=== PATIENT | male | born 1940 ===

== ENCOUNTER 2016-08-08 14:55 | Emergency (ER) | payer MEDICARE ==
[2016-08-08 15:03] VITALS: BMI 24.3
[2016-08-08 15:04] VITALS: RESP 18; TEMP 97.4; O2SAT 97
[2016-08-08] MEDS ORDERED: Sodium Chloride 0.9% 1,000 ML IV SCH (15:30)
[2016-08-08 15:58] LABS: BASO % 0.5 % (0.0-2.0); EOS # 0.1 K/uL (0.0-0.7); EOS % 1.2 % (0.0-4.0); HEMATOCRIT 37.6 % (35.0-51.0); LYMPH # 1.1 K/uL (1.0-4.3); LYMPH % 10.7 % (20.0-40.0); MEAN CELL VOLUME 91.6 fL (80.0-94.0); MEAN CORPUSCULAR HEMOGLOBIN 30.6 pg (27.0-31.0); MEAN CORPUSCULAR HGB CONC 33.4 g/dL (33.0-37.0); MONO # 0.5 K/uL (0.0-0.8); MONO % 4.6 % (0.0-10.0); RED CELL DISTRIBUTION WIDTH 13.2 % (11.5-14.5)
[2016-08-08 16:07] LABS: CHLORIDE 101 mmol/L (98-107); SODIUM 137 mmol/L (132-148)
[2016-08-08 16:08] LABS: POTASSIUM 4.3 mmol/L (3.6-5.2)
[2016-08-08 16:09] LABS: CHOLESTEROL 166 mg/dL (0-199); GFR AFRICAN-AMERICAN > 60
[2016-08-08 16:10] LABS: ALB/GLOB RATIO 1.8 (1.0-2.1); ALKALINE PHOSPHATASE 71 U/L (38-126); ALT/SGPT 23 U/L (21-72); AST/SGOT 20 U/L (17-59); BILIRUBIN,TOTAL < 0.1 mg/dL (0.2-1.3); BLOOD UREA NITROGEN 19 mg/dL (9-20); CALCIUM 9.2 mg/dl (8.6-10.4); GLUCOSE,RANDOM 142 mg/dL (75-110); TOTAL PROTEIN 7.6 g/dL (6.3-8.3)
[2016-08-08 16:11] LABS: ALCOHOL SERUM < 10 mg/dl (0-10)
[2016-08-08] MEDS ORDERED: Sodium Chloride 0.9% 1,000 ML ONE (16:11)
--- NOTE | 2016-08-08 16:15 | CT ---
PROCEDURE: CT HEAD WITHOUT CONTRAST. HISTORY: acute vertigo, ? cerebellar COMPARISON: None available. TECHNIQUE: Axial computed tomography images were obtained through the head/brain without intravenous contrast. Radiation dose: Total exam DLP = 1169.9 mGy-cm. This CT exam was performed using one or more of the following dose reduction techniques: Automated exposure control, adjustment of the mA and/or kV according to patient size, and/or use of iterative reconstruction technique. FINDINGS: HEMORRHAGE: No intracranial hemorrhage. BRAIN: No mass effect or edema. No atrophy or chronic microvascular ischemic changes. VENTRICLES: Unremarkable. No hydrocephalus. CALVARIUM: Unremarkable. PARANASAL SINUSES: Mild sinuses mucosal thickening. MASTOID AIR CELLS: Unremarkable as visualized. No inflammatory changes. OTHER FINDINGS: None. IMPRESSION: No evidence of acute intracranial hemorrhage mass lesion mass effect or midline shift. Mild sinuses mucosal thickening.
[2016-08-08 16:17] VITALS: BP 131/72; PULSE 73
[2016-08-08 16:40] LABS: CARBON DIOXIDE 24 mmol/L (22-30)
--- NOTE | 2016-08-08 16:43 | C.PDOC ---
History Of Present Illness 76 y/o male presents to the ED with complains of mild dizziness since this morning. Pt also reports seasonal allergies and nasal congestion. Pt denies headache, weakness, numbness, vision changes or any other complaints. Denies fall. Time Seen by Provider: 08/08/16 15:25 Chief Complaint (Nursing): Dizziness/Lightheaded History Per: Patient History/Exam Limitations: no limitations Onset/Duration Of Symptoms: Hrs Current Symptoms Are (Timing): Still Present Seizure Or Post-ictal Symptoms: None Fall Associated With With Symptoms: No Severity: Mild Recent travel outside of the [place]: No - Symptoms Of CVA Recent Head Trauma: No Past Medical History Reviewed: Historical Data, Nursing Documentation, Vital Signs Vital Signs: Last Vital Signs Temp 97.4 F L 08/08/16 15:03 Pulse 73 08/08/16 16:16 Resp 18 08/08/16 16:16 BP 131/72 08/08/16 16:16 Pulse Ox 97 08/08/16 16:43 - Medical History PMH: HTN, Hypercholesterolemia Family History: States: Unknown Family Hx - Social History Hx Alcohol Use: No Hx Substance Use: No - Immunization History Hx Tetanus Toxoid Vaccination: No Hx Influenza Vaccination: No Hx Pneumococcal Vaccination: No Review Of Systems Except As Marked, All Systems Reviewed And Found Negative. Constitutional: Negative for: Fever, Chills ENT: Positive for: Nose Congestion Respiratory: Negative for: Cough, Shortness of Breath Gastrointestinal: Negative for: Vomiting Neurological: Positive for: Dizziness. Negative for: Weakness, Numbness, Headache Physical Exam - Physical Exam Appears: Non-toxic, No Acute Distress Skin: Warm, Dry, No Rash Head: Atraumatic, Normacephalic Ear(s): Bilateral: Normal Nose: Normal Throat: Normal, No Erythema Neck: Normal, Normal ROM, Supple Chest: Symmetrical Cardiovascular: Rhythm Regular, No Murmur Respiratory: Normal Breath Sounds, No Rales, No Rhonchi, No Wheezing Extremity: Normal ROM, No Pedal Edema Extremity: Bilateral: Atraumatic Neurological/Psych: Oriented x3, Normal Speech ED Course And Treatment - Laboratory Results Result Diagrams: 08/08/16 15:51 08/08/16 15:51 Lab Interpretation: Normal (trop neg.) ECG: Interpreted By Wi ECG Rhythm: Sinus Rhythm ECG Interpretation: Normal Rate From EC (BPM) O2 Sat by Pulse Oximetry: 97 (room air) Pulse Ox Interpretation: Normal - Radiology CXR: Interpreted by Me CXR Interpretation: Yes: No Acute Disease - Other Rad head CT X-Ray: Read By Radiologist (neg) Progress Note: meclizine PO Reevaluation Time: 16:43 Reassessment Condition: Improved (dizziness resolved) Medical Decision Making Medical Decision Making: sinus irritation vs mild vertigo normal w/u improved with Meclizine opt f/u with PMD Disposition Doctor Will See Patient In The: Office Counseled Patient/Family Regarding: Studies Performed, Diagnosis - Disposition Referrals: Americo Mujica MD [Medical Doctor] - Disposition: HOME/ ROUTINE Disposition Time: 16:43 Condition: GOOD Additional Instructions: medicamentos para las allergias nasales- mario Shira-D. Usa mario dirijido Antivert/Meclizine 25 mg cada 6 horas mario necessario para los mareos, si los medicamentos descongestionantes no sirven. Sigue con roberts medico mario necessario. Prescriptions: Meclizine [Meclizine*] 25 mg PO Q6 PRN #30 tab PRN Reason: vertigo Instructions: Vertigo (ED), Dizziness (ED) Print Language: NICARAGUAN - Clinical Impression Clinical Impression: Dizziness - Scribe Statement The provider has reviewed the documentation as recorded by the Noemi Zaidi Provider Attestation: All medical record entries made by the Mitchelibandrey were at my direction and personally dictated by me. I have reviewed the chart and agree that the record accurately reflects my personal performance of the history, physical exam, medical decision making, and the department course for this patient. I have also personally directed, reviewed, and agree with the discharge instructions and disposition.
--- NOTE | 2016-08-08 16:48 | RAD ---
HISTORY: dizzy COMPARISON: No prior. FINDINGS: LUNGS: No active pulmonary disease. PLEURA: No significant pleural effusion identified, no pneumothorax apparent. CARDIOVASCULAR: Normal. OSSEOUS STRUCTURES: No significant abnormalities. VISUALIZED UPPER ABDOMEN: Normal. OTHER FINDINGS: None. IMPRESSION: No active disease.
[2016-08-08 17:02] LABS: RBC URINE < 1 /hpf (0-3); URINE BILIRUBIN NEGATIVE (NEGATIVE); URINE BLOOD NEGATIVE (NEGATIVE); URINE COLOR Yellow (YELLOW); URINE GLUCOSE (UA) 1+ mg/dL (Normal); URINE KETONE NEGATIVE (NEGATIVE); URINE LEUKOCYTE ESTERASE NEG Leu/uL (Negative); URINE PROTEIN NEGATIVE (NEGATIVE); URINE UROBILINOGEN NORMAL mg/dL (0.2-1.0); WBC URINE 1 /hpf (0-5)
--- NOTE | 2016-08-15 13:38 | CARD ---
APPROVED REPORT EKG Measurement Heart [id number] [place] 150P71 [id number] <Conclusion> Normal sinus rhythm Possible Anterior infarct, age undetermined Abnormal ECG
== END 2016-08-08 16:55 | disposition home or self-care (01) ==
LOC: C.ER 14:55
DX: R42 Dizziness and giddiness (principal)
CPT/HCPCS: 70450; 71010; 80053; 80061; 81001; 83036; 84484; 85025; 99285; G0480; J7040

== ENCOUNTER 2017-09-02 15:24 | Emergency (ER) | payer MEDICARE ==
[2017-09-02 15:26] VITALS: BMI 24.3
[2017-09-02] MEDS ORDERED: Sodium Chloride 0.9% 1,000 ML IV ONE ×2 (15:47→17:21)
--- NOTE | 2017-09-02 16:05 | C.PDOC ---
History Of Present Illness 77 year old male, whose PMHx includes Diabetes, presents to the ED for evaluation of elevated blood sugar level. Patient states he takes a "pill" for his Diabetes, but does not recall the name. Patient reports he had a headache yesterday, but does not have one today. He denies fever, chills, nausea, vomiting, urinary frequency. Time Seen by Provider: 09/02/17 15:40 Chief Complaint (Nursing): High Blood Sugar History Per: Patient History/Exam Limitations: no limitations Onset/Duration Of Symptoms: Days Current Symptoms Are (Timing): Still Present Current Diabetic Medications: Oral Medication Associated Infectious Symptoms: denies: Urinary Frequency, Nausea, Vomiting Additional History Per: Patient Past Medical History Reviewed: Historical Data, Nursing Documentation, Vital Signs Vital Signs: Last Vital Signs Temp Pulse 98 H 09/02/17 15:43 Resp 22 09/02/17 15:43 BP 99/58 L 09/02/17 15:43 Pulse Ox 93 L 09/02/17 17:55 - Medical History PMH: HTN, Hypercholesterolemia Surgical History: No Surg Hx Family History: States: Unknown Family Hx - Social History Hx Alcohol Use: No Hx Substance Use: No - Immunization History Hx Tetanus Toxoid Vaccination: No Hx Influenza Vaccination: No Hx Pneumococcal Vaccination: No Review Of Systems Constitutional: Positive for: Other (elevated blood sugar level ) Gastrointestinal: Negative for: Nausea, Vomiting Genitourinary: Negative for: Frequency Physical Exam - Physical Exam Appears: Non-toxic, No Acute Distress Skin: Normal Color, Warm, Dry Head: Atraumatic, Normacephalic Eye(s): bilateral: Normal Inspection Oral Mucosa: Moist Neck: Supple Chest: Symmetrical, No Deformity, No Tenderness Cardiovascular: Rhythm Regular, No Murmur Respiratory: Normal Breath Sounds, No Rales, No Rhonchi, No Wheezing Extremity: Normal ROM, Capillary Refill (less than 2 seconds ) Neurological/Psych: Oriented x3, Normal Speech, Normal Cognition ED Course And Treatment - Laboratory Results Result Diagrams: 09/02/17 15:58 09/02/17 15:58 Lab Interpretation: Abnormal ECG: Interpreted By Me ECG Rhythm: Sinus Rhythm ECG Interpretation: Normal Rate From EC O2 Sat by Pulse Oximetry: 93 Pulse Ox Interpretation: Normal Progress Note: Bloodwork, urinalysis, EKG ordered. IV Fluids administered. Treated with additional NSS and regular insulin 5 Units SQ. On re-evaluation feeling better in no distress. Patient advised to follow up with clinic or PMD for further evaluation Reassessment Condition: Improved Disposition Counseled Patient/Family Regarding: Studies Performed, Diagnosis, Need For Followup - Disposition Referrals: [facility] [Outside] [facility] [Outside] Disposition: HOME/ ROUTINE Disposition Time: 18:45 Condition: IMPROVED Additional Instructions: Follow up with PMD or clinic for further evaluation Instructions: Hyperglycemia, Adult Forms: [employer] (Albanian) - POA Present On Arrival: None - Clinical Impression Clinical Impression: Hyperglycemia, Diabetic complication - PA / ABATEMENT WORKER / Resident Statement MD/DO has reviewed & agrees with the documentation as recorded. - Scribe Statement The provider has reviewed the documentation as recorded by the Scribe (Ann Benitez) All medical record entries made by the Scribe were at my direction and personally dictated by me. I have reviewed the chart and agree that the record accurately reflects my personal performance of the history, physical exam, medical decision making, and the department course for this patient. I have also personally directed, reviewed, and agree with the discharge instructions and disposition.
[2017-09-02 16:07] LABS: BASO # 0.1 K/uL (0.0-0.2); BASO % 0.8 % (0.0-2.0); EOS # 0.1 K/uL (0.0-0.7); EOS % 0.9 % (0.0-4.0); HEMOGLOBIN 13.3 g/dL (12.0-18.0); LYMPH # 1.9 K/uL (1.0-4.3); LYMPH % 20.8 % (20.0-40.0); MEAN CELL VOLUME 92.5 fL (80.0-94.0); MEAN CORPUSCULAR HGB CONC 34.6 g/dL (33.0-37.0); MONO # 0.7 K/uL (0.0-0.8); MONO % 7.3 % (0.0-10.0); NEUT # 6.4 K/uL (1.8-7.0); NEUT % 70.2 % (50.0-75.0); RBC 4.16 Mil/uL (4.40-5.90); RED CELL DISTRIBUTION WIDTH 12.5 % (11.5-14.5); WHITE BLOOD COUNT 9.1 K/uL (4.8-10.8)
[2017-09-02 16:37] LABS: ALB/GLOB RATIO 1.2 (1.0-2.1); ALBUMIN 4.2 g/dL (3.5-5.0); CALCIUM 9.9 mg/dl (8.6-10.4)
[2017-09-02 17:16] LABS: SQUAMOUS EPITHIAL < 1 /hpf (0-5); URINE BILIRUBIN NEGATIVE (NEGATIVE); URINE BLOOD NEGATIVE (NEGATIVE); URINE CLARITY Clear (Clear); URINE COLOR Yellow (YELLOW); URINE GLUCOSE (UA) 3+ mg/dL (Normal); URINE LEUKOCYTE ESTERASE NEG Leu/uL (Negative); URINE PROTEIN NEGATIVE (NEGATIVE); URINE UROBILINOGEN NORMAL mg/dL (0.2-1.0)
[2017-09-02] MEDS ORDERED: (Novolin R) Insulin Human Regular 100 units/ml vial SC ONE (17:31)
[2017-09-02] MEDS ORDERED: (Novolin R) Insulin Human Regular 100 units/ml vial ONE (17:46)
[2017-09-02 18:44] VITALS: BP 108/63; PULSE 63; RESP 18; TEMP 98; O2SAT 98
--- NOTE | 2017-09-03 14:27 | CARD ---
APPROVED REPORT EKG Measurement Heart [id number] [place] 144P63 [id number] <Conclusion> Normal sinus rhythm Normal ECG
== END 2017-09-02 18:47 | disposition home or self-care (01) ==
LOC: C.ER 15:24
DX: E11.65 Type 2 diabetes mellitus with hyperglycemia (principal); Z79.84 Long term (current) use of oral hypoglycemic drugs
CPT/HCPCS: 80053; 81001; 82948; 83690; 85025; 93005; 99284; J7030

== ENCOUNTER 2017-09-07 19:05 | Emergency (ER) | payer MEDICARE ==
[2017-09-07 19:08] VITALS: BMI 24.3
[2017-09-07] MEDS ORDERED: Alum-Mag Hydrox-Simethicone Susp (30 mL) PO STA (19:57)
[2017-09-07] MEDS ORDERED: Alum-Mag Hydrox-Simethicone Susp (30 mL) ONE (20:09)
[2017-09-07 20:13] LABS: BASO # 0.1 K/uL (0.0-0.2); BASO % 0.8 % (0.0-2.0); EOS # 0.2 K/uL (0.0-0.7); EOS % 2.1 % (0.0-4.0); HEMOGLOBIN 13.3 g/dL (12.0-18.0); LYMPH # 2.3 K/uL (1.0-4.3); LYMPH % 29.3 % (20.0-40.0); MEAN CORPUSCULAR HEMOGLOBIN 31.4 pg (27.0-31.0); MEAN CORPUSCULAR HGB CONC 34.8 g/dL (33.0-37.0); MEAN PLATELET VOLUME 11.3 fL (7.2-11.7); MONO # 0.5 K/uL (0.0-0.8); MONO % 6.9 % (0.0-10.0); NEUT # 4.8 K/uL (1.8-7.0); NEUT % 60.9 % (50.0-75.0); NRBC % 0.1 % (0.0-2.0); RBC 4.24 Mil/uL (4.40-5.90); RED CELL DISTRIBUTION WIDTH 12.2 % (11.5-14.5); WHITE BLOOD COUNT 7.9 K/uL (4.8-10.8)
[2017-09-07 20:15] LABS: MEAN CELL VOLUME 90.4 fL (80.0-94.0)
[2017-09-07 20:33] LABS: ALB/GLOB RATIO 1.1 (1.0-2.1); ALBUMIN 4.2 g/dL (3.5-5.0); ALT/SGPT 14 U/L (21-72); AST/SGOT 24 U/L (17-59); BLOOD UREA NITROGEN 38 mg/dL (9-20); CALCIUM 9.5 mg/dl (8.6-10.4); GFR AFRICAN-AMERICAN > 60; GFR NON-AFRICAN AMERICAN 59; LIPASE 178 U/L (23-300)
[2017-09-07] MEDS ORDERED: Sodium Chloride 0.9% 1,000 ML IV STA (20:41)
--- NOTE | 2017-09-07 21:31 | C.PDOC ---
History Of Present Illness Pt c/o acid feeling in his throat. Time Seen by Provider: 09/07/17 19:42 Chief Complaint (Nursing): Medical Clearance History Per: Patient Onset/Duration Of Symptoms: Days, Waxing/Waning Current Symptoms Are (Timing): Still Present Severity: Moderate Additional History Per: Prior Records Past Medical History Reviewed: Historical Data, Nursing Documentation, Vital Signs Vital Signs: Last Vital Signs Temp 98.5 F 09/07/17 19:10 Pulse 101 H 09/07/17 19:10 Resp 16 09/07/17 19:10 BP 114/74 09/07/17 19:10 Pulse Ox 99 09/07/17 19:10 - Medical History PMH: Diabetes, HTN, Hypercholesterolemia Surgical History: No Surg Hx Family History: States: Unknown Family Hx - Social History Hx Tobacco Use: No Hx Alcohol Use: No Hx Substance Use: No - Immunization History Hx Tetanus Toxoid Vaccination: No Hx Influenza Vaccination: No Hx Pneumococcal Vaccination: No Review Of Systems Except As Marked, All Systems Reviewed And Found Negative. Constitutional: Negative for: Fever, Weakness ENT: Positive for: Throat Pain Cardiovascular: Negative for: Chest Pain Respiratory: Negative for: Shortness of Breath Gastrointestinal: Negative for: Vomiting, Diarrhea Musculoskeletal: Negative for: Neck Pain, Back Pain Skin: Negative for: Rash Neurological: Negative for: Weakness, Numbness Physical Exam - Physical Exam Appears: Non-toxic, No Acute Distress Skin: Normal Color, Warm, Dry, No Rash Head: Atraumatic, Normacephalic Eye(s): bilateral: PERRL, EOMI Oral Mucosa: Moist, No Drooling, No Trismus Throat: Normal Neck: Normal ROM, Supple Lymphatic: No Adenopathy Cardiovascular: Rhythm Regular Respiratory: Normal Breath Sounds, No Accessory Muscle Use Gastrointestinal/Abdominal: Soft, No Tenderness, No Distention Extremity: Normal ROM, No Pedal Edema, No Calf Tenderness Neurological/Psych: Oriented x3, Normal Speech, Normal Motor, Normal Sensation ED Course And Treatment - Laboratory Results Result Diagrams: 09/07/17 20:10 09/07/17 20:10 ECG: Interpreted By Me, Viewed By Me ECG Rhythm: Sinus Rhythm ECG Interpretation: No Acute Changes Rate From EC O2 Sat by Pulse Oximetry: 99 Pulse Ox Interpretation: Normal Progress - Interventions Interventions:: Observation, Intravenous fluid - Medications Administered Oral: Antacid, H-2 sravan Intravenous: Antiemetic - Data Reviewed Data Reviewed: Lab, EKG, Old records - Patient Status Patient status: Mostly improved - Continuity of Care Discussed patient case with:: Patient, Family-HIPPA compliant, ED Nurse - Patient Plan Patient Plan: Discharge, F/U with PCP Disposition Counseled Patient/Family Regarding: Studies Performed, Diagnosis, Need For Followup, Rx Given - Disposition Referrals: Americo Mujica MD [Medical Doctor] - Disposition: HOME/ ROUTINE Disposition Time: 21:34 Condition: IMPROVED Additional Instructions: Follow up with your doctor for further evaluation and treatment. Return to the ER if you develop chest pain, shortness of breath, vomiting, bloody or black stools, worsening of symptoms or if you have any other concerns. Prescriptions: Famotidine [Pepcid] 20 mg PO BID #30 tab Instructions: Acid Reflux (Gastroesophageal Reflux Disease), Adult (DC) Forms: [employer] (South Sudanese) Print Language: BRITISH [place] ISLANDER - Clinical Impression Clinical Impression: GERD (gastroesophageal reflux disease)
[2017-09-07 21:49] VITALS: BP 104/62; PULSE 85; RESP 18; TEMP 98.2; O2SAT 96
--- NOTE | 2017-09-08 12:35 | CARD ---
APPROVED REPORT EKG Measurement Heart [id number] [place] 140P72 [id number] <Conclusion> Normal sinus rhythm Normal ECG
== END 2017-09-07 21:48 | disposition home or self-care (01) ==
LOC: C.ER 19:05
DX: K21.9 Gastro-esophageal reflux disease without esophagitis (principal)
CPT/HCPCS: 80053; 82948; 83690; 84484; 85025; 93005; 96360; 99284; J7030

== ENCOUNTER 2018-05-15 10:22 | Emergency (ER) | payer MEDICARE ==
[2018-05-15 10:22] VITALS: BMI 24.3
[2018-05-15 11:50] LABS: BASO % 0.5 % (0.0-2.0); EOS # 0.2 K/uL (0.0-0.7); EOS % 2.1 % (0.0-4.0); HEMOGLOBIN 12.4 g/dL (12.0-18.0); LYMPH % 25.2 % (20.0-40.0); MEAN CELL VOLUME 92.7 fL (80.0-94.0); MEAN CORPUSCULAR HEMOGLOBIN 31.4 pg (27.0-31.0); MEAN CORPUSCULAR HGB CONC 33.8 g/dL (33.0-37.0); MEAN PLATELET VOLUME 10.4 fL (7.2-11.7); MONO # 0.6 K/uL (0.0-0.8); NEUT # 5.3 K/uL (1.8-7.0); NEUT % 65.2 % (50.0-75.0); NRBC % 0.1 % (0.0-2.0); RBC 3.97 Mil/uL (4.40-5.90); RED CELL DISTRIBUTION WIDTH 12.6 % (11.5-14.5); WHITE BLOOD COUNT 8.1 K/uL (4.8-10.8)
[2018-05-15] MEDS ORDERED: Sodium Chloride 0.9% 1,000 ML IV ONE (11:55)
[2018-05-15 12:06] LABS: SQUAMOUS EPITHIAL 1 /hpf (0-5); URINE BILIRUBIN NEGATIVE (NEGATIVE); URINE BLOOD NEGATIVE (NEGATIVE); URINE CLARITY Clear (Clear); URINE COLOR Yellow (YELLOW); URINE GLUCOSE (UA) NORMAL (Normal); URINE LEUKOCYTE ESTERASE NEG Leu/uL (Negative); URINE PROTEIN NEGATIVE (NEGATIVE); URINE UROBILINOGEN NORMAL mg/dL (0.2-1.0)
[2018-05-15 12:21] LABS: ALB/GLOB RATIO 1.4 (1.0-2.1); ALBUMIN 4.5 g/dL (3.5-5.0); BLOOD UREA NITROGEN 19 mg/dL (9-20); CALCIUM 9.2 mg/dl (8.6-10.4); GFR NON-AFRICAN AMERICAN 59; LIPASE 59 U/L (23-300)
[2018-05-15 12:23] LABS: ALT/SGPT 18 U/L (21-72); AST/SGOT 35 U/L (17-59)
[2018-05-15] MEDS ORDERED: Sodium Chloride 0.9% 1,000 ML ONE (13:05)
--- NOTE | 2018-05-15 13:10 | C.PDOC ---
History Of Present Illness 77 year old male presents to the ED for evaluation of diarrhea for 4 days. The patient reports x2 episodes of diarrhea today with decreased PO intake. Notes visit to PMD yesterday where he was given Imodium with no improvement, prompting ED visit. Denies known allergies to medications. Teo fever, chills, hematochezia, sick contact, and any other associated symptoms. Time Seen by Provider: 05/15/18 11:30 Chief Complaint (Nursing): Abdominal Pain History Per: Patient History/Exam Limitations: no limitations Onset/Duration Of Symptoms: Days (x4) Current Symptoms Are (Timing): Still Present Location Of Pain/Discomfort: LUQ, LLQ Recent travel outside of the [place]: No Past Medical History Reviewed: Historical Data, Nursing Documentation, Vital Signs Vital Signs: Last Vital Signs Temp 98 F 05/15/18 10:32 Pulse 78 05/15/18 10:32 Resp 18 05/15/18 10:32 BP 117/74 05/15/18 10:32 Pulse Ox 99 05/15/18 10:32 - Medical History PMH: Diabetes, HTN, Hypercholesterolemia Family History: States: Unknown Family Hx - Social History Hx Tobacco Use: No Hx Alcohol Use: No Hx Substance Use: No - Immunization History Hx Tetanus Toxoid Vaccination: No Hx Influenza Vaccination: No Hx Pneumococcal Vaccination: No Review Of Systems Except As Marked, All Systems Reviewed And Found Negative. Constitutional: Negative for: Fever, Chills, Other ((-) sick contact. ) Eyes: Negative for: Pain ENT: Negative for: Ear Pain Cardiovascular: Negative for: Chest Pain Respiratory: Negative for: Cough, Shortness of Breath Gastrointestinal: Positive for: Abdominal Pain (lower. ), Diarrhea, Other ((+) d ecreased PO intake.). Negative for: Hematochezia Genitourinary: Negative for: Dysuria Musculoskeletal: Negative for: Neck Pain Skin: Negative for: Rash Neurological: Negative for: Weakness, Numbness Physical Exam - Physical Exam Appears: Well, Non-toxic, No Acute Distress Skin: Warm, Dry Head: Atraumatic, Normacephalic Eye(s): bilateral: Normal Inspection Oral Mucosa: Moist Neck: Normal ROM, Supple Chest: Symmetrical Cardiovascular: Rhythm Regular, No Murmur Respiratory: Normal Breath Sounds, No Rales, No Rhonchi, No Wheezing Gastrointestinal/Abdominal: Bowel Sounds (hyperactive.), Soft, Tenderness ((+) lower abdominal tenderness.) Extremity: Normal ROM (x4) Neurological/Psych: Oriented x3, Normal Speech, Normal Cognition ED Course And Treatment - Laboratory Results Result Diagrams: 05/15/18 11:42 05/15/18 11:42 Lab Results: Total Bilirubin 0.5 mg/dL (0.2-1.3) 05/15/18 11:42 AST 35 U/L (17-59) 05/15/18 11:42 ALT 18 U/L (21-72) L D 05/15/18 11:42 Alkaline Phosphatase 68 U/L (38-126) 05/15/18 11:42 Total Protein 7.7 g/dL (6.3-8.3) 05/15/18 11:42 Albumin 4.5 g/dL (3.5-5.0) 05/15/18 11:42 Globulin 3.2 gm/dL (2.2-3.9) 05/15/18 11:42 Albumin/Globulin Ratio 1.4 (1.0-2.1) 05/15/18 11:42 Lipase 59 U/L (23-300) 05/15/18 11:42 Urine Color Yellow (YELLOW) 05/15/18 11:42 Urine Clarity Clear (Clear) 05/15/18 11:42 Urine pH 5.0 (5.0-8.0) 05/15/18 11:42 Ur Specific [place] 1.020 (1.003-1.030) 05/15/18 11:42 Urine Protein Negative mg/dL (NEGATIVE) 05/15/18 11:42 Urine Glucose (UA) Normal mg/dL (Normal) 05/15/18 11:42 Urine Ketones Negative mg/dL (NEGATIVE) 05/15/18 11:42 Urine Blood Negative (NEGATIVE) 05/15/18 11:42 Urine Nitrate Negative (NEGATIVE) 05/15/18 11:42 Urine Bilirubin Negative (NEGATIVE) 05/15/18 11:42 Urine Urobilinogen Normal mg/dL (0.2-1.0) 05/15/18 11:42 Ur Leukocyte Esterase Neg Scooby/uL (Negative) 05/15/18 11:42 Urine WBC (Auto) 1 /hpf (0-5) 05/15/18 11:42 Ur Squamous Epith Cells 1 /hpf (0-5) 05/15/18 11:42 O2 Sat by Pulse Oximetry: 99 (RA) Pulse Ox Interpretation: Normal - CT Scan/US CT ABD/PELVIS Other Rad Studies (CT/US): Read By Radiologist CT/US Interpretation: FINDINGS: LOWER THORAX: Limited bilateral basilar dependent atelectasis identified. Cardiomegaly stable. LIVER: No suspicious hepatic findings in the interval. Stable tiny punctate granuloma right lobe liver inferiorly. GALLBLADDER AND BILE DUCTS: Unremarkable. PANCREAS: Unremarkable. No gross lesion or ductal dilatation. SPLEEN: Unremarkable. ADRENALS: Unremarkable. No mass. KIDNEYS AND URETERS: Right kidney remains unremarkable. There is a large cyst exophytic off the upper pole left kidney not significantly changed in size remaining simple in appearance, measuring 8.0 x 9.0 cm. Multiple tiny lucency seen the midpole left kidney once again which are too small to characterize but also not significantly changed. VASCULATURE: Unremarkable. No aortic aneurysm. No aortic atherosclerotic calcification or mural plaque present. BOWEL: Stomach is collapsed and not well evaluated. No pericolic reaction or perienteric reaction to overtly suggest enteritis or colitis, however, the sigmoid colon is not distended adequately and mural thickening is not excluded as result. Accordingly, an element of colitis difficult to exclude at the sigmoid colon.. No diverticular changes throughout. [id number] retained fecal material scattered throughout the large bowel with limited of fluid identified in the left hemicolon. APPENDIX: Normal appe ndix. PERITONEUM: Unremarkable. No free fluid. No free air. LYMPH NODES: Unremarkable. No enlarged lymph nodes. BLADDER: Unremarkable. REPRODUCTIVE: Enlarged prostate gland again evident. BONES: Straightened thoraco lumbar curvature. No acute fracture appreciable. No destructive bony lesion identified. OTHER FINDINGS: Minimal cystic change is identified without local enhancement in the gluteus minimus muscle immediately lateral to the innominate bone/inferior right iliac bone possibly is residual from prior muscle injury. IMPRESSION: Nonspecific sigmoid colitis possible, however, due to lack of adequate distention, it is difficult to evaluate this segment of large bowel. No pericolic reaction however fluid is seen intermixed with stool within the distal descending through rectosigmoid. Further clinical correlation is advised. Large left renal cyst reiterated not significantly changed in size. Two additional small lucencies may represent additional cyst though too small to characterize at the left kidney as well. No obstructive uropathy bilaterally. Other lesser findings as discussed above. Medical Decision Making Medical Decision Making: Initial plan: -CT ABD/Pelvis IV Contrast -Blood sent. -Pepcid -Toradol -Zofran Progress/Update: Results discussed with the patient. On re-exam, the patient reports improvement of symptoms. Lungs are CTA, heart is RRR, abdomen is soft, non-tender and the patient is tolerating PO well. Instructed to follow up with the medical doctor within 1-2 days. Return if worsened. Prescribed Flagyl, Motrin, and Cipro. Advised to return if symptoms worsen and to follow-up with PMD with 2-3 days. Disposition - Disposition Referrals: Fabian Sun MD [Medical Doctor] - Disposition: HOME/ ROUTINE Disposition Time: 15:48 Condition: GOOD Additional Instructions: Follow up with the medical doctor/clinic within 1-2 days. Return if worsened. Prescriptions: Ciprofloxacin [Cipro] 1 tab PO BID #14 tab Ibuprofen [Motrin] 1 tab PO TID PRN #30 tab PRN Reason: Pain metroNIDAZOLE [Flagyl] 500 mg PO BID #14 tab Instructions: Diarrhea in Adolescents and Adults, Colitis Forms: [employer] (Occitan) Print Language: MACEDONIAN - Clinical Impression Clinical Impression: Colitis, Diarrhea - PA / INTERIOR ASSEMBLIES INSTALLER / Resident Statement MD/DO has reviewed & agrees with the documentation as recorded. - Scribe Statement The provider has reviewed the documentation as recorded by the Scribe (Ayala Alves) All medical record entries made by the Scribe were at my direction and personally dictated by me. I have reviewed the chart and agree that the record accurately reflects my personal performance of the history, physical exam, medical decision making, and the department course for this patient. I have also personally directed, reviewed, and agree with the discharge instructions and disposition.
[2018-05-15 13:34] VITALS: TEMP 98.5
[2018-05-15] MEDS ORDERED: Iodixanol 320 mg/ml 150 ml Bottle IV ONE (13:50)
[2018-05-15 15:08] VITALS: BP 114/66; PULSE 75; RESP 19
--- NOTE | 2018-05-15 15:39 | CT ---
Date of service: 05/15/2018 PROCEDURE: CT Abdomen and Pelvis with contrast HISTORY: abd pain, diarrhea x 5 days r/o colitis COMPARISON: Abdomen pelvis CT with contrast 05/31/2015. TECHNIQUE: Following the intravenous administration of iodinated contrast material, a CT examination of the abdomen and pelvis was performed from the domes of the diaphragms to the symphysis pubis with reformatted datasets provided in axial, sagittal and coronal planes. Oral contrast was not administered as per referring physician request. Contrast dose: Visipaque 320, 150 cc Radiation dose: Total exam DLP = 639.13 mGy-cm. This CT exam was performed using one or more of the following dose reduction techniques: Automated exposure control, adjustment of the mA and/or kV according to patient size, and/or use of iterative reconstruction technique. FINDINGS: LOWER THORAX: Limited bilateral basilar dependent atelectasis identified. Cardiomegaly stable. LIVER: No suspicious hepatic findings in the interval. Stable tiny punctate granuloma right lobe liver inferiorly. GALLBLADDER AND BILE DUCTS: Unremarkable. PANCREAS: Unremarkable. No gross lesion or ductal dilatation. SPLEEN: Unremarkable. ADRENALS: Unremarkable. No mass. KIDNEYS AND URETERS: Right kidney remains unremarkable. There is a large cyst exophytic off the upper pole left kidney not significantly changed in size remaining simple in appearance, measuring 8.0 x 9.0 cm. Multiple tiny lucency seen the midpole left kidney once again which are too small to characterize but also not significantly changed. VASCULATURE: Unremarkable. No aortic aneurysm. No aortic atherosclerotic calcification or mural plaque present. BOWEL: Stomach is collapsed and not well evaluated. No pericolic reaction or perienteric reaction to overtly suggest enteritis or colitis, however, the sigmoid colon is not distended adequately and mural thickening is not excluded as result. Accordingly, an element of colitis difficult to exclude at the sigmoid colon.. No diverticular changes throughout. [id number] retained fecal material scattered throughout the large bowel with limited of fluid identified in the left hemicolon. APPENDIX: Normal appendix. PERITONEUM: Unremarkable. No free fluid. No free air. LYMPH NODES: Unremarkable. No enlarged lymph nodes. BLADDER: Unremarkable. REPRODUCTIVE: Enlarged prostate gland again evident. BONES: Straightened thoraco lumbar curvature. No acute fracture appreciable. No destructive bony lesion identified. OTHER FINDINGS: Minimal cystic change is identified without local enhancement in the gluteus minimus muscle immediately lateral to the innominate bone/inferior right iliac bone possibly is residual from prior muscle injury. IMPRESSION: Nonspecific sigmoid colitis possible, however, due to lack of adequate distention, it is difficult to evaluate this segment of large bowel. No pericolic reaction however fluid is seen intermixed with stool within the distal descending through rectosigmoid. Further clinical correlation is advised. Large left renal cyst reiterated not significantly changed in size. Two additional small lucencies may represent additional cyst though too small to characterize at the left kidney as well. No obstructive uropathy bilaterally. Other lesser findings as discussed above.
[2018-05-15 15:51] VITALS: O2SAT 99
== END 2018-05-15 15:57 | disposition home or self-care (01) ==
LOC: C.ER 10:22
DX: K52.9 Noninfective gastroenteritis and colitis, unspecified (principal)
CPT/HCPCS: 74177; 80053; 81001; 83690; 85025; 96361; 96374; 96375; 99285; J1885; J2405; J7030; Q9967